=== PATIENT | female | born 1960 | race Hispanic/Latino ===

== ENCOUNTER 2017-12-14 13:00 | Inpatient (IN) | payer BC ==
[~2017-12-14] VITALS: Ht 160 cm; Wt 75.7 kg
[2017-12-14 12:55] VITALS: BP 127/59
[2017-12-14 13:14] LABS: BASOPHILS % (AUTO) 1.1 % (0.0-5.0); EOSINOPHILS % (AUTO) 1.2 % (0.0-8.0); HEMATOCRIT 40.3 % (36-48); MEAN CORPUSCULAR HEMOGLOBIN 29.4 pg (27.0-33.0); MEAN CORPUSCULAR HGB CONC 33.5 g/dL (32.0-36.0); MEAN CORPUSCULAR VOLUME 87.7 fL (79-99); MONOCYTES % (AUTO) 6.8 % (3.0-13.0); NEUTROPHILS % (AUTO) 66.9 % (40.0-77.0); NUCLEATED RED BLOOD CELLS 0.1 % (0.0-0.19); PLATELET COUNT (AUTO) 239 K/uL (130-400); RED CELL DISTRIBUTION WIDTH 13.6 % (11.0-15.5); WHITE BLOOD COUNT (AUTO) 6.8 K/uL (4.8-10.8)
[2017-12-14 13:19] LABS: POTASSIUM 4.1 mmol/L (3.5-5.1)
[2017-12-14] MEDS ORDERED: IBUP-2077 PO (13:59)
[2017-12-14] MEDS ORDERED: CYCL10TA7 PO (13:59)
[2017-12-15] VITALS (20 sets, daily range): BP systolic 118–150; BP diastolic 52–76
[2017-12-15] MEDS ORDERED: LACTATED RINGERS 1000ML 1,000 ML IV ONE (06:42)
[2017-12-15] MEDS ORDERED: BACITRACIN 50,000 UNIT VIAL ONE (06:54)
[2017-12-15] MEDS ORDERED: MICROFIBRILLAR COLLAGEN 1 GM PACKAGE TP ONE (06:54)
[2017-12-15] MEDS ORDERED: BUPIVACAINE/EPI/PF 0.25% 30ML VIAL IJ ONE (06:54)
[2017-12-15] MEDS ORDERED: LIDOCAINE PF 2% 5ML ABBOJECT ONE (06:55)
[2017-12-15] MEDS ORDERED: THROMBIN-JMI 20000 UNIT KIT TP ONE (06:55)
[2017-12-15] MEDS ORDERED: ONDANSETRON HCL 4 MG/2 ML VIAL ONE (06:56)
[2017-12-15] MEDS ORDERED: DEXAMETHASONE SOD PHOSPHATE 10MG/ML 1ML VIAL ONE ×2 (06:56→06:59)
[2017-12-15] MEDS ORDERED: NEOSTIGMINE 5MG/5ML SYR IV ONE (06:56)
[2017-12-15] MEDS ORDERED: PROPOFOL 10 MG/ML 20ML VIAL IV ONE (06:56)
[2017-12-15] MEDS ORDERED: MIDAZOLAM HCL 1 MG/ML 2ML VIAL ONE (06:56)
[2017-12-15] MEDS ORDERED: ROCURONIUM 10MG/1ML SYR 10 MG/ML ML ONE (06:57)
[2017-12-15] MEDS ORDERED: FENTANYL CITRATE PF 50 MCG/1 ML 2ML VIAL ONE ×2 (06:57→07:43)
[2017-12-15] MEDS: CLINDAMYCIN 900 MG/D5% WATER 50 ML IV SCH ×2 (07:00→07:28)
[2017-12-15] MEDS ORDERED: GLYCOPYRROLATE 1 MG/5 ML SYRINGE ONE (07:01)
[2017-12-15] MEDS ORDERED: PHENYLEPHRINE HCL 10 MG/ML 1ML VIAL IV ONE (07:42)
[2017-12-15] MEDS ORDERED: NAPR-1023 PO (09:17)
[2017-12-15] MEDS ORDERED: GENTAMICIN 80 MG/NS 100 ML PB 100 ML IV ONE (09:31)
[2017-12-15] MEDS ORDERED: CLINDAMYCIN 900 MG/D5% WATER 50 ML IV SCH (10:30)
[2017-12-15] MEDS ORDERED: SODIUM CHLORIDE 0.9% 10 ML VIAL IVP PRN (10:30)
[2017-12-15] MEDS ORDERED: CYCLOBENZAPRINE HCL 10 MG TABLET PO PRN (10:30)
[2017-12-15] MEDS ORDERED: MORPHINE SULFATE 2 MG/ML 1ML SYG IVP PRN (10:30)
[2017-12-15] MEDS ORDERED: NAPROXEN 500 MG TABLET PO PRN (10:30)
[2017-12-15] MEDS ORDERED: PROMETHAZINE HCL 25 MG/ML 1ML AMPULE IM PRN (10:30)
[2017-12-15] MEDS ORDERED: IBUPROFEN 800 MG TAB PO PRN (10:45)
[2017-12-15] MEDS: LACTATED RINGERS 1000ML 1,000 ML IV SCH ×2 (11:27→23:21)
[2017-12-15] MEDS: DEXAMETHASONE SOD PHOSPHATE 4 MG/ML 1ML VIAL IVP SCH ×3 (11:28→23:20)
[2017-12-15] MEDS: HYDROCODONE/ACETAMINOPHEN 5/325 MG TAB PO PRN ×2 (15:06→19:42)
[2017-12-15] MEDS ORDERED: BENZOCAINE/MENTH/CETYLPYRD CL 1 EACH LOZENGE MM PRN (16:00)
[2017-12-16] MEDS: HYDROCODONE/ACETAMINOPHEN 5/325 MG TAB PO PRN (01:12)
[2017-12-16] MEDS ORDERED: TEMAZEPAM 15 MG CAPSULE ONE (02:03)
[2017-12-16] MEDS ORDERED: ACETAMINOPHEN 325 MG TAB PO PRN (02:15)
[2017-12-16] MEDS ORDERED: TEMAZEPAM 15 MG CAPSULE PO PRN (02:15)
[2017-12-16] MEDS: DEXAMETHASONE SOD PHOSPHATE 4 MG/ML 1ML VIAL IVP SCH (04:05)
[2017-12-16 04:26] VITALS: BP 119/65
[2017-12-16 07:34] VITALS: BP 135/62
== END 2017-12-16 12:08 | disposition home or self-care (01) | DRG 473 ==
LOC: EDSTATUS 13:00 → DAHIP 12-15 05:40 → 4AH 12-15 11:09
PROVIDERS: ADMIT Neurological Surgery; ATTEND Neurological Surgery
PROC: 3E0U0GB Introduction of Recombinant Bone Morphogenetic Protein into Joints, Open Approach (ICD-10-PCS; 2017-12-15)
PROC: 4A11X4G Monitoring of Peripheral Nervous Electrical Activity, Intraoperative, External Approach (ICD-10-PCS; 2017-12-15)
PROC: 0RG20K0 Fusion of 2 or more Cervical Vertebral Joints with Nonautologous Tissue Substitute, Anterior Approach, Anterior Column, Open Approach (ICD-10-PCS; principal; 2017-12-15 07:18)
PROC: 0RT30ZZ Resection of Cervical Vertebral Disc, Open Approach (ICD-10-PCS; 2017-12-15 07:18)
PROC: 01N10ZZ Release Cervical Nerve, Open Approach (ICD-10-PCS; 2017-12-15 07:18)
DX: M48.02 Spinal stenosis, cervical region (principal); M54.12 Radiculopathy, cervical region; M25.78 Osteophyte, vertebrae; Z88.0 Allergy status to penicillin; Z79.899 Other long term (current) drug therapy; Z90.710 Acquired absence of both cervix and uterus
CPT/HCPCS: 36415; 72020; 80051; 85025; A4344; G0008; J1100; J1580; J2001; J2250; J2370; J2405; J2704; J2710; J3010; J3490; J7120; Q2038

== ENCOUNTER → 2018-01-11 | Outpatient (CLI) | payer BC ==
[~2018-01-11] MED LIST: CYCL10TA7 PO
== END | disposition home or self-care (01) ==
LOC: OIH 10:09
PROVIDERS: ATTEND Neurological Surgery
DX: M43.22 Fusion of spine, cervical region (principal)
CPT/HCPCS: 72040

== ENCOUNTER → 2018-01-20 | Outpatient (CLI) | payer BC | END | disposition home or self-care (01) | LOC: RAH 11:41 | PROVIDERS: ATTEND Physical Medicine & Rehabilitation | DX: M75.111 Incomplete rotator cuff tear or rupture of right shoulder, not specified as traumatic (principal); M47.892 Other spondylosis, cervical region | CPT/HCPCS: 73030 ==

== ENCOUNTER → 2018-02-17 | Outpatient (CLI) | payer BC | END | disposition home or self-care (01) | LOC: RAH 15:44 | PROVIDERS: ATTEND Physical Medicine & Rehabilitation | DX: M19.011 Primary osteoarthritis, right shoulder (principal); M75.111 Incomplete rotator cuff tear or rupture of right shoulder, not specified as traumatic | CPT/HCPCS: 73221 ==

== ENCOUNTER 2018-08-27 09:06 | Day surgery (SDC) | payer BC ==
[2018-08-26 14:30] LABS: BASOPHILS % (AUTO) 0.5 % (0.0-5.0); EOSINOPHILS % (AUTO) 0.8 % (0.0-8.0); LYMPHOCYTES % (AUTO) 24.3 % (21.0-51.0); MEAN CORPUSCULAR HEMOGLOBIN 29.3 pg (27.0-33.0); MEAN CORPUSCULAR HGB CONC 32.9 g/dL (32.0-36.0); MEAN CORPUSCULAR VOLUME 89.2 fL (79-99); MONOCYTES % (AUTO) 7.8 % (3.0-13.0); NEUTROPHILS % (AUTO) 66.6 % (40.0-77.0); NUCLEATED RED BLOOD CELLS 0.1 % (0.0-0.19); PLATELET COUNT (AUTO) 257 K/uL (130-400); RED BLOOD CELL COUNT(AUTO) 4.59 MIL/uL (4.00-5.50); WHITE BLOOD COUNT (AUTO) 7.9 K/uL (4.8-10.8)
[2018-08-26 14:38] LABS: CREATININE 0.8 mg/dL (0.5-1.5); POTASSIUM 3.9 mmol/L (3.5-5.1)
[2018-08-26 14:53] VITALS: BP 119/47
[2018-08-27] VITALS (17 sets, daily range): BP systolic 106–150; BP diastolic 48–59
[~2018-08-27] VITALS: Ht 160 cm; Wt 75.1 kg
[~2018-08-27 09:06] MED LIST changes: +CLINDAMYCIN IN 0.9 % SOD CHLOR 50 ML IV PRN
[2018-08-27] MEDS ORDERED: LACTATED RINGERS 1000ML 1,000 ML IV ONE (10:19)
[2018-08-27] MEDS ORDERED: CLINDAMYCIN 900 MG/D5% WATER 50 ML IV ONE (10:29)
[2018-08-27] MEDS ORDERED: LIDOCAINE PF 2% 5ML ABBOJECT ONE (12:02)
[2018-08-27] MEDS ORDERED: ROCURONIUM 10MG/1ML SYR 10 MG/ML ML ONE (12:02)
[2018-08-27] MEDS ORDERED: PROPOFOL 10 MG/ML 20ML VIAL IV ONE (12:02)
[2018-08-27] MEDS ORDERED: FENTANYL CITRATE PF 50 MCG/1 ML 2ML VIAL ONE (12:03)
[2018-08-27] MEDS ORDERED: ROPIVACAINE 0.5% 5MG/ML 30ML IJ ONE (12:03)
[2018-08-27] MEDS ORDERED: EPINEPHRINE 1 MG/ML 30ML VIAL IJ ONE (12:59)
[2018-08-27] MEDS ORDERED: NEOSTIGMINE 5MG/5ML SYR IV ONE (15:24)
[2018-08-27] MEDS ORDERED: KETOROLAC TROMETHAMINE 30MG/ML ONE (15:24)
[2018-08-27] MEDS ORDERED: GLYCOPYRROLATE 1 MG/5 ML SYRINGE ONE (15:24)
[2018-08-27] MEDS ORDERED: ONDANSETRON HCL 4 MG/2 ML VIAL ONE (15:37)
[2018-08-27] MEDS ORDERED: DEXAMETHASONE SOD PHOSPHATE 10MG/ML 1ML VIAL ONE (15:37)
[2018-08-27] MEDS ORDERED: NAPR-1192 PO (15:43)
[2018-08-27] MEDS ORDERED: CLIN300C3 PO (15:43)
[2018-08-27] MEDS ORDERED: HYDR-4457 PO (15:43)
[2018-08-27] MEDS ORDERED: MEPERIDINE-PF 25 MG/ML SYG ONE (16:12)
--- NOTE | 2018-08-27 17:50 | NUR ---
PT DISCHARGED HOME, TOLERATING FLUIDS WELL, AMBULATING WELL. PT DENIES ANY SEVERE PAIN, NAUSEA OR DIZZINESS. SHOULDER BLOCK STILL IN EFFECT BUT PT REPORTS THAT BREATHING HAS BECOME MORE COMFORTABLE. DRESSING TO RIGHT SHOULDER REMAINS DRY, CLEAN, AND INTACT. PT AND SPOUSE REPORT NO FURTHER QUESTIONS AT THIS TIME. PRESCRIPTIONS GIVEN TO SPOUSE. Addendum: 08/27/18 at 1815 by SAM AGUILAR RN RN RIGHT ARM REMAINS IN SLING FOR AMBULATION.
== END 2018-08-27 17:50 | disposition home or self-care (01) ==
LOC: DAH 09:06
PROVIDERS: ATTEND Orthopaedic Surgery
DX: M75.111 Incomplete rotator cuff tear or rupture of right shoulder, not specified as traumatic (principal); M75.81 Other shoulder lesions, right shoulder; M75.41 Impingement syndrome of right shoulder; Z98.1 Arthrodesis status; Z98.890 Other specified postprocedural states; Z88.0 Allergy status to penicillin; Z87.891 Personal history of nicotine dependence
CPT/HCPCS: 29824; 29826; 29827; 36415; 80048; 85025; A4565; A4600; A4649 ×5; A4930 ×2; A6204; C1713; G0168; J0171; J1100; J1885; J2001; J2175; J2405; J2704; J2710; J2795; J3010; J3490 ×2; J7030; J7120

== ENCOUNTER → 2019-12-09 | Outpatient (CLI) | payer BC ==
[~2019-12-09] MED LIST changes: +CLIN300C3 PO; -CLINDAMYCIN IN 0.9 % SOD CHLOR 50 ML IV PRN; +HYDR-4457 PO; +NAPR-1192 PO
== END | disposition home or self-care (01) ==
LOC: RAH 13:00
PROVIDERS: ATTEND Physical Medicine & Rehabilitation
DX: M47.26 Other spondylosis with radiculopathy, lumbar region (principal); M48.061 Spinal stenosis, lumbar region without neurogenic claudication; M51.16 Intervertebral disc disorders with radiculopathy, lumbar region; M17.12 Unilateral primary osteoarthritis, left knee
CPT/HCPCS: 72148; 73562

== ENCOUNTER → 2024-02-02 | Outpatient (CLI) | payer BC ==
[~2024-02-02] MED LIST changes: +CYCL-309 PO; -CYCL10TA7 PO
--- NOTE | 2024-02-02 10:35 | HMCIMG ---
US PELVIC NON-OB COMP REASON: generalized abd pain COMPARISON: None TECHNIQUE: Routine pelvic sonogram was performed. FINDINGS: The uterus is absent. Right ovary is atrophic consistent with age, 1.5 x 2.1 cm. Left ovary was not separately identified. There are no adnexal cysts or masses. There is no free fluid in the cul-de-sac. Urinary bladder appears normal. IMPRESSION: 1. Absent uterus, otherwise negative pelvic sonogram.
--- NOTE | 2024-02-02 10:36 | HMCIMG ---
US ABDOMINAL COMPLETE REASON: generalized abd pain COMPARISON: None FINDINGS: There is normal sonographic appearance of the liver. There are no focal mass lesions. The liver is not enlarged.The gallbladder is surgically absent. Kidneys appear normal in size and appearance. There is no evidence of mass, stone or hydronephrosis. Spleen and common duct appear normal. Aorta and inferior vena cava appear normal. The pancreas appears normal as well. IMPRESSION: 1. Absent gallbladder. 2. Otherwise normal exam.
== END | disposition home or self-care (01) ==
LOC: RAH 07:48
PROVIDERS: ATTEND Internal Medicine
DX: N83.311 Acquired atrophy of right ovary (principal); R10.84 Generalized abdominal pain; Z90.49 Acquired absence of other specified parts of digestive tract; Z90.710 Acquired absence of both cervix and uterus
CPT/HCPCS: 76700; 76856